=== PATIENT | female | born 1980 | race Caucasian/White ===

== ENCOUNTER → 2017-01-29 | Outpatient (CLI) | payer OTHER ==
[~2017-01-29] MED LIST: BUPR-42 PO; MULT-974 PO; ONDN4T PO; OXYC5SOL19 PO; PANT40TA2 PO
--- OUTSIDE RECORDS SUMMARY | 2017-01-29 07:09 | XMS REPORT | Continuity of Care Document ---
Author Author [facility] Organization [facility] Address Unknown Phone Unavailable Care Team Providers Care Case Advocate Name Role Phone DILMA BADILLO MD PCP Insurance Providers Payer Name Policy Number Subscriber Name Relationship [employer] [id number] Anamika Milton 19 Self / Same As Patient Advance Directives Directive Response Recorded Date/Time Advance Directives No 06/23/15 10:34pm Resuscitation Status Full Code 06/23/15 10:34pm Problems Medical Problems Problem Onset Date Status Anxiety Unknown Active Depression Unknown Active Medications No known medications. Social History Social History Problem Response Recorded Date/Time Alcohol Use Denies Use 06/23/2015 10:34pm Recreational Drug Use No 06/23/2015 10:34pm Recent Foreign Travel No 06/23/2015 10:25pm Recent Infectious Disease Exposure No 06/23/2015 10:25pm Hospitalization with Isolation Denies 06/23/2015 10:25pm Smoking Status Never a Smoker 06/23/2015 10:34pm Query Response Start Date Stop Date Smoking Status Never a Smoker Hospital Discharge Instructions No hospital discharge instructions. Plan of Care No plan of care. Functional Status No functional status results. Allergies, Adverse Reactions, Alerts Allergen Type Severity Reaction Status Last Updated No Allergy Information Available Active 04/23/15 Immunizations No immunization records. Vital Signs Acute Vital Signs Vital Response Date/Time Temperature (Fahrenheit) 96.8 degrees F (97.6 - 99.5) Temperature (Calculated Celsius) 36.52521 degrees C (36.4 - 37.5) Temperature Source Temporal Pulse Rate (adult) 83 bpm (60 - 90) Respiratory Rate 18 bpm (12 - 24) O2 Sat by Pulse Oximetry 97 % (88 - 100) Blood Pressure 148/101 mm Hg Blood Pressure Mean 117 mm Hg Pain Pain Intensity 2 Height (Feet) 5 feet Height (Inches) 8 inches Height (Calculated Centimeters) 172.739576 cm Weight (Pounds) 325 pounds Weight (Calculated Kilograms) 147.633351 kilograms Calculated BMI 49.41 Results No known relevant diagnostic tests, laboratory data and/or discharge summary. Procedures Procedure Status Date Provider(s) Tracing only of electrocardiogram completed 06/23/15 EUGENE MORENO APRN Encounters Encounter Location Date/Time Departed Emergency Room [facility] 06/23/15 10:22pm Recent Diagnosis
--- NOTE | 2017-01-29 13:01 | Diagnostic Imaging Report ---
PROCEDURE: MRI left joint lower extremity without contrast. TECHNIQUE: Multiplanar, multisequence non contrast-enhanced MRI of the left lower extremity was accomplished. INDICATION: Left ankle pain and swelling. History of multiple twisting injuries. FINDINGS: There are prominent ankle and subtalar joint effusions with a prominent outpouching joint fluid posteriorly projecting from the posterior subtalar joint seen. There is mild marrow edema seen within the talus and the calcaneus. There is also marrow edema seen in the medial malleolus and minimally in the lateral malleolus. This is perhaps related to contusions. No macroscopic fracture line or displaced fracture is seen. There is no subchondral fracture or osteochondral lesion. There is thickening of the anterior talofibular ligament suggestive of old injury with surrounding edema probably related to a superimposed acute mild sprain. There is also evidence of mild sprain without full-thickness tear in the posterior talofibular ligament. Increased signal without full-thickness tear is also seen in the calcaneofibular ligament. There is also mild increased signal without full-thickness tears seen involving components of the deltoid ligament. The flexor tendons demonstrate prominent distention of the tendon sheath most prominent around the tibialis posterior and flexor hallucis longus. This may relate to tenosynovitis or could be trauma related. There is also prominent edema or sprain within the visualized portion of the distal tibialis posterior muscle extending to the myotendinous junction. The peroneal tendons demonstrate minimal fluid around the tendon sheath. There is minimal increased signal within the substance of the peroneus brevis suggestive of a low-grade intrasubstance tear. The extensor tendons appear intact. The Achilles tendon is normal. There is a calcaneal spur seen with increased signal along the origin of the plantar fascia suggestive of plantar fasciitis. IMPRESSION: 1. Bone marrow contusions around the ankle and subtalar joint with no displaced or macroscopic fracture line. 2. Tibialis posterior muscle sprain. 3. Prominent fluid distention of the flexor tendons and to a lesser extent in the peroneal tendons is presumably posttraumatic with possible hemorrhagic components or tenosynovitis. The tendons however appear intact except for minimal intrasubstance tear in the peroneus brevis tendon. 4. Prominent ankle and subtalar joint effusions with fluid extending posteriorly into the Kager's fat pad area from the posterior subtalar joint. 5. Mild plantar fasciitis. Dictated by: Dictated on workstation # [id number]
== END ==
LOC: RAD 07:06
PROVIDERS: ATTEND Podiatrist Foot & Ankle Surgery
DX: S93.402A Sprain of unspecified ligament of left ankle, initial encounter (principal); X50.0XXA Overexertion from strenuous movement or load, initial encounter; Y92.009 Unspecified place in unspecified non-institutional (private) residence as the place of occurrence of the external cause
CPT/HCPCS: 73721